=== PATIENT | male | born 1975 | race Caucasian/White ===

== ENCOUNTER 2016-07-14 19:30 | Emergency (ER) | payer OTHER ==
[2016-07-14 19:54] VITALS: BP 120/81
[2016-07-14 20:24] LABS: BASOPHIL % 0.4 % (0-2); PLATELET COUNT 242 x10^3mcL (130-400); RED CELL DISTRIBUTION WIDTH 12.8 % (11.5-14.5)
[2016-07-14 20:44] LABS: CARBON DIOXIDE 18.1 mmol/L (21-32)
[2016-07-14 20:45] LABS: POTASSIUM SERUM 2.8 mmol/L (3.5-5.1)
[2016-07-14 21:31] LABS: CREATININE SERUM 2.3 mg/dL (0.7-1.3); TOTAL PROTEIN, SERUM 6.6 g/dL (6.4-8.2)
[2016-07-14 21:32] LABS: ALBUMIN 3.8 g/dL (3.4-5.0); BILIRUBIN TOTAL 0.3 mg/dL (0.20-1.00); CALCIUM 8.9 mg/dL (8.5-10.1)
== END 2016-07-14 19:54 | disposition short-term general hospital (02) ==
LOC: ED 19:30
PROVIDERS: Emergency Medicine
DX: I21.09 ST elevation (STEMI) myocardial infarction involving other coronary artery of anterior wall (principal); I46.9 Cardiac arrest, cause unspecified
CPT/HCPCS: 83880; J0282; J1644; J3475; J7030